=== PATIENT | female | born 1950 | race Two or more races ===

== ENCOUNTER 2018-04-04 10:19 | Day surgery (SDC) | payer MEDICARE, BC ==
[~2018-04-04] VITALS: Ht 160 cm; Wt 105.0 kg
[~2018-04-04 10:19] MED LIST: AMLO10TA6 PO; ASPI-496 PO; DICL75TA2 PO; HYDR12.58 PO; LANS15TA6 PO; LEVO25TA2 PO; LOSA100T7 PO; METH10TA6 PO; MULT-230 PO; OMEG1CAP6 PO; PARI1CAP3 PO; TIMO5DRO37 EACHEYE; VITAMIN B12 IM
[2018-04-04] MEDS ORDERED: LACTATED RINGERS 1,000 ML IV SCH (10:34)
[2018-04-04 11:06] VITALS: BP 130/86
== END 2018-04-04 13:50 | disposition home or self-care (01) ==
LOC: OUT 10:19
PROVIDERS: ATTEND Internal Medicine Gastroenterology
DX: Z09 Encounter for follow-up examination after completed treatment for conditions other than malignant neoplasm (principal); D12.5 Benign neoplasm of sigmoid colon; K57.30 Diverticulosis of large intestine without perforation or abscess without bleeding; K64.8 Other hemorrhoids; I10 Essential (primary) hypertension; K21.9 Gastro-esophageal reflux disease without esophagitis; E03.9 Hypothyroidism, unspecified; Z88.5 Allergy status to narcotic agent; Z88.8 Allergy status to other drugs, medicaments and biological substances
CPT/HCPCS: 45385; 88305; 93005; J7120

== ENCOUNTER → 2018-06-30 | Outpatient (CLI) | payer MEDICARE, BC ==
[~2018-06-30] MED LIST changes: -DICL75TA2 PO; +DICL75TA3 PO; -HYDR12.58 PO; +HYDROCHLOROTH12.5 MG PO
== END | disposition home or self-care (01) ==
LOC: CFH 13:49
PROVIDERS: ATTEND Internal Medicine Cardiovascular Disease
DX: I10 Essential (primary) hypertension (principal); Z86.718 Personal history of other venous thrombosis and embolism
CPT/HCPCS: 93306